=== PATIENT | male | born 1950 | race Caucasian/White ===

== ENCOUNTER 2017-03-07 16:54 | Emergency (ER) | payer OTHER, BC ==
[~2017-03-07] VITALS: Ht 170.2 cm; Wt 69.6 kg
[2017-03-07 16:59] VITALS: Ht 170.2 cm; Wt 69.6 kg
[2017-03-07 20:08] LABS: URINE BLOOD (Dip) POC 1+ (NEGATIVE)
[2017-03-07] MEDS ORDERED: ONDANSETRON 4 MG INJ IV STA (20:20)
[2017-03-07] MEDS ORDERED: metroNIDAZOLE 500 MG/NS (PMX) 100 ML IVPB STA (20:20)
[2017-03-07] MEDS ORDERED: SODIUM CHLORIDE 0.9% 1L BAG IV* STA (20:20)
[2017-03-07] MEDS ORDERED: morphine 4 MG/ML VIAL IV STA (20:20)
[2017-03-07] MEDS ORDERED: ACETAMINOPHEN 325 MG TAB PO STA (20:20)
[2017-03-07] MEDS ORDERED: PIPER-TAZO 3.375 GM IV (PMX) 50 ML IVPB STA (20:20)
--- NOTE | 2017-03-07 20:25 | ERD ---
ER Documentation Chief Complaint Chief Complaint abdominal pain x 3 days, sent by pmd HPI 66-year-old male with a history of GERD, diverticulosis and prediabetes presents to the ED complaining of a 3 day history of moderate to severe, sharp and crampy, nonradiating left lower quadrant pain with nausea and multiple episodes of nonbloody, non-mucoid diarrhea. No vomiting. No ill contacts, recent travel or spoiled food exposure. Denies chest pain, palpitations or shortness of breath. Subjective fevers and chills. Patient seen by his PMD earlier this afternoon and referred to the ED for further evaluation. ROS All systems reviewed and are negative except as per history of present illness. Medications Home Meds Reported Medications Meloxicam* (Mobic*) 15 Mg Tablet, 15 MG PO DAILY, #30 TAB 03/07/17 Pantoprazole* (Pantoprazole*) 40 Mg Tablet.dr, 40 MG PO AC BREAKFAST, TAB 03/07/17 Benazepril Hcl* (Benazepril Hcl*) 5 Mg Tablet, 5 MG PO DAILY, #30 TAB 03/07/17 Allergies Allergies: Coded Allergies: No Known Allergy (Unverified , 03/07/17) PMhx/Soc Reviewed in chart. As per HPI. History of Surgery: Yes (back surgery) Anesthesia Reaction: No Hx Cardiac Disorders: Yes (htn, high cholesterol) Hx Miscellaneous Medical Probl: Yes (pre-diabetic) Hx Alcohol Use: Yes (occasionally) Hx Substance Use: No Hx Tobacco Use: Yes Smoking Status: Current every day smoker FmHx No cancer, stroke or diabetes Physical Exam Vitals Vital Signs Date Time Temp Pulse Resp B/P Pulse Ox O2 Delivery O2 Flow Rate FiO2 03/07/17 20:14 101.9 89 20 126/64 98 Room Air 03/07/17 16:59 99.4 84 18 140/64 96 Physical Exam Const: Alert, moderate distress due to pain. Head: Atraumatic Eyes: Normal Conjunctiva ENT: Normal External Ears, Nose and Mouth. Neck: Full range of motion..~ No meningismus. Resp: Clear to auscultation bilaterally Cardio: Regular rate and rhythm, no murmurs Abd: Soft, left lower quadrant tenderness. No rebound or guarding. Right upper quadrant or right lower quadrant tenderness. Skin: No petechiae or rashes Back: No midline or flank tenderness Ext: No cyanosis, or edema Neur: Awake and alert Psych: Normal Mood and Affect Result Diagram: 03/07/17202703/07/172027 Results 24 hrs Laboratory Tests Test 03/07/17 20:00 03/07/17 20:06 03/07/17 20:28 Urine Color YELLOW Urine Clarity CLEAR Urine pH 6.0 Urine Specific [place] 1.030 Urine Ketones 1+mg/dL Urine Nitrite POSITIVEmg/dL Urine Bilirubin NEGATIVEmg/dL Urine Urobilinogen 1+mg/dL Urine Leukocyte Esterase NEGATIVELeu/ul Urine Microscopic RBC 1/HPF Urine Microscopic WBC 2/HPF Urine Mucus MANY/HPF Urine Hemoglobin 1+mg/dL Urine Glucose 1+mg/dL Urine Total Protein 1+mg/dl Bedside Urine pH (LAB) 5.5 Bedside Urine Protein (LAB) Trace Bedside Urine Glucose (UA) Negative Bedside Urine Ketones (LAB) 1+ Bedside Urine Blood 1+ Bedside Urine Nitrite (LAB) Negative Bedside Urine Leukocyte Esterase (L Negative White Blood Count 10.110^3/ul Red Blood Count 4.5410^6/ul Hemoglobin 14.4g/dl Hematocrit 40.6% Mean Corpuscular Volume 89.4fl Mean Corpuscular Hemoglobin 31.7pg Mean Corpuscular Hemoglobin Concent 35.5g/dl Red Cell Distribution Width 12.3% Platelet Count 27797^3/UL Mean Platelet Volume 9.4fl Neutrophils % 83.3% Lymphocytes % 9.4% Monocytes % 6.6% Eosinophils % 0.0% Basophils % 0.3% Nucleated Red Blood Cells % 0.0/100WBC Neutrophils # 8.410^3/ul Lymphocytes # 0.910^3/ul Monocytes # 0.710^3/ul Eosinophils # 0.010^3/ul Basophils # 0.010^3/ul Nucleated Red Blood Cells # 0.010^3/ul Prothrombin Time 13.6Sec Prothrombin Time Ratio 1.1 INR International Normalized Ratio 1.03 Activated Partial Thromboplast Time 31.5Sec Sodium Level 140mmol/L Potassium Level 3.7mmol/L Chloride Level 104mmol/L Carbon Dioxide Level 27mmol/L Anion Gap 13 Blood Urea Nitrogen 14mg/dl Creatinine 0.93mg/dl Glucose Level 129mg/dl Lactic Acid Level 1.4mmol/L Calcium Level 9.0mg/dl Total Bilirubin 1.0mg/dl Direct Bilirubin 0.00mg/dl Indirect Bilirubin 1.0mg/dl Aspartate Amino Transf (AST/SGOT) 22IU/L Alanine Aminotransferase (ALT/SGPT) 38IU/L Alkaline Phosphatase 78IU/L Troponin I < 0.012ng/ml Total Protein 8.0g/dl Albumin 4.1g/dl Globulin 3.90g/dl Albumin/Globulin Ratio 1.05 Current Medications Medications (Trade) Dose Ordered Sig/Jules Route PRN Reason Start Time Stop Time Status Last Admin Dose Admin Sodium Chloride (NS) 2,160 ml BOLUS OVER 2 HOURS STAT IV* 03/07/17 20:20 03/07/17 20:23 DC 03/07/17 20:39 Acetaminophen 650 mg 650 mg ONCE STAT PO 03/07/17 20:20 03/07/17 20:23 DC 03/07/17 20:37 Piperacillin Sod/ Tazobactam Sod 50 ml @ 100 mls/hr ONCE STAT IVPB 03/07/17 20:20 03/07/17 20:49 DC 03/07/17 20:38 Metronidazole (Flagyl 500 Mg (Pmx)) 100 ml @ 100 mls/hr ONCE STAT IVPB 03/07/17 20:20 03/07/17 21:19 DC 03/07/17 21:48 Morphine Sulfate (morphine) 4 mg ONCE STAT IV 03/07/17 20:20 03/07/17 20:23 DC 03/07/17 20:38 Ondansetron HCl (Zofran Inj) 4 mg ONCE STAT IV 03/07/17 20:20 03/07/17 20:23 DC 03/07/17 20:38 IV Flush 10 ml 10 ml STK-MED ONCE .ROUTE 03/07/17 21:01 03/07/17 21:02 DC 03/07/17 21:17 Sodium Chloride (NS) 100 ml @ ud STK-MED ONCE .ROUTE 03/07/17 21:01 03/07/17 21:02 DC 03/07/17 21:19 Iodixanol (Visipaque Locm) 100 ml STK-MED ONCE .ROUTE 03/07/17 21:01 03/07/17 21:02 DC 03/07/17 21:19 EKG: Time: 20:43. Sinus rhythm. Ventricular rate 87, normal AK and QRS intervals. No acute ST segment elevation or depression. No axis deviation or ectopy. EP Impression: Normal EKG IMAGING: PROCEDURE: CT abdomen and pelvis with contrast. CLINICAL INDICATION: Left lower quadrant pain TECHNIQUE: CT scan of the abdomen and pelvis without oral contrast was performed and is reconstructed at all 2.5 mm contiguous axial intervals from the dome of the diaphragm to the inferior pubic rami.. The patient was scanned with intravenous contrast. Sagittal and coronal reformatted images were obtained from the axial source images. The calculated radiation dose measures 449 mGy centimeters. The CTDI measures the 7.9 mGy. Individualized dose optimization technique was used for the performance of this exam. This included 1. Automated exposure control. 2. Adjustment of the mA and / or kV according to the patient's size. 3. Use of iterative reconstructed technique. COMPARISON: None. FINDINGS: The lung bases are clear of any infiltrate or nodule. No effusion is seen. The liver is of normal size, contour and attenuation with no mass or ductal dilatation. No gallstones are visualized. No splenic, adrenal or pancreatic abnormalities present. Kidneys enhance symmetrically and are of normal size and contour. No hydronephrosis, calculus or masses seen. Ureters are of normal course and caliber with no stone. No bladder mass or stone is present. Prostate and seminal vesicles are normal. There is no aneurysm. No adenopathy is present. No bowel mass or obstruction is present. The appendix is normal. There is diverticulosis. No phlegmon, ascites or pneumoperitoneum is visualized. There is L4-L5 degenerative disc narrowing. IMPRESSION: No evidence of urolithiasis, obstructive uropathy, diverticulitis or appendicitis. Diverticulosis. 2. L4-L5 degenerative disc narrowing. .Presley Remy MD, MD Date Time Electronically viewed and signed by .Presley Remy MD, on 03/07/2017 21: 31 .A/ Procedures/MDM DOCUMENTS REVIEWED: ED nurse, prior records. REEXAMINATION/REEVALUATION: Time:22:45. Doing well. Abdomen soft nontender. No nausea or vomiting. MEDICAL DECISION MAKIN-year-old male with a history of GERD, diverticulosis and prediabetes presents to the ED complaining of a 3 day history of abdominal pain and diarrhea. CT the abdomen pelvis performed to evaluate for an acute intra-abdominal process including but not limited to abdominal aortic aneurysm, obstructive uropathy, appendicitis, diverticulitis and colitis is unremarkable. Doubt mesenteric ischemia. Fever but no criteria for systemic inflammatory response or more sepsis. No evidence of pyelonephritis, urinary tract infection or prostatitis. Possible infectious diarrhea. Although the etiology of his symptoms do not been established pain resolved with intravenous hydration, analgesics and antiemetics. Stable for discharge of precautionary instructions and outpatient follow-up as counseled. Counseled patient and family regarding diagnosis, diagnostic results and plan for discharge. Clearly understands that the etiology of his symptoms are not definitively established and urgent outpatient follow-up in 24 hours is mandatory return to ED immediately if symptoms worsen. Departure Diagnosis: Primary Impression: Acute abdominal pain in left lower quadrant Additional Impressions: Fever Fever type: unspecified Qualified Code: R50.9 - Fever, unspecified fever cause Diarrhea Diarrhea type: unspecified type Qualified Code: R19.7 - Diarrhea, unspecified type Condition: Stable (Improved) DEBBY OROURKE MD Mar 07, 2017 20:25
--- NOTE | 2017-03-07 20:42 | RADRPT ---
PROCEDURE: Chest x-ray CLINICAL INDICATION: Shortness of breath TECHNIQUE: Chest single view COMPARISON: None FINDINGS: The heart is normal in size. The pulmonary vessels are normal in caliber. The lungs are clear. Th e costophrenic angles are sharp. The visualized bony thorax is unremarkable. IMPRESSION: No acute cardiopulmonary disease. RPTAT: HH .Jefferson Nielsen MD, Date Time Electronically viewed and signed by .Jefferson Nielsen MD, on 03/07/2017 20:41 .W/
[2017-03-07 20:52] LABS: BASOPHILS % 0.3 % (0.0-2.0); HEMATOCRIT 40.6 % (42.0-52.0); HEMOGLOBIN 14.4 g/dl (14.0-18.0); LYMPHOCYTES # 0.9 10^3/ul (0.8-2.9); LYMPHOCYTES % 9.4 % (15.0-51.0); MEAN CORPUSCULAR HEMOGLOBIN 31.7 pg (29.0-33.0); MEAN CORPUSCULAR HGB CONC 35.5 g/dl (32.0-37.0); MEAN CORPUSCULAR VOLUME 89.4 fl (82.0-101.0); MEAN PLATELET VOLUME 9.4 fl (7.4-10.4); MONOCYTE # 0.7 10^3/ul (0.3-0.9); MONOCYTES % 6.6 % (0.0-11.0); NEUTROPHIL # 8.4 10^3/ul (1.6-7.5); NEUTROPHILS % 83.3 % (39.0-77.0); PLATELET COUNT 182 10^3/UL (140-415); RED BLOOD COUNT 4.54 10^6/ul (4.70-6.10); RED CELL DISTRIBUTION WIDTH 12.3 % (11.5-14.5); WHITE BLOOD COUNT 10.1 10^3/ul (4.8-10.8)
[2017-03-07 20:59] LABS: ADD UMIC YES; UR ASCORBIC ACID NEGATIVE (NEGATIVE); UR BILIRUBIN (Dip) NEGATIVE (NEGATIVE); UR BLOOD (Dip) 1+ mg/dL (NEGATIVE); UR CLARITY CLEAR (CLEAR); UR COLOR YELLOW (YELLOW); UR GLUCOSE (Dip) 1+ mg/dL (NEGATIVE); UR KETONES (Dip) 1+ mg/dL (NEGATIVE); UR LEUKOCYTE ESTERASE (Dip) NEGATIVE Leu/ul (NEGATIVE); UR MUCUS MANY /HPF (NONE SEEN); UR NITRITE (Dip) POSITIVE (NEGATIVE); UR RBC 1 /HPF (0-5); UR TOTAL PROTEIN (Dip) 1+ mg/dl (NEGATIVE); UR UROBILINOGEN (Dip) 1+ mg/dL (NEGATIVE)
[2017-03-07] MEDS ORDERED: IODIXANOL LOCM 100 ML BTL ONE (21:01)
[2017-03-07] MEDS ORDERED: SOD CHLORIDE 0.9% 100 ML ONE (21:01)
[2017-03-07 21:10] LABS: INR 1.03; PROTIME 13.6 Sec (11.9-14.9); PT RATIO 1.1
[2017-03-07 21:11] LABS: ALANINE AMINOTRANSFERASE 38 IU/L (13-69); ALBUMIN 4.1 g/dl (3.3-4.9); ALBUMIN/GLOBULIN RATIO 1.05; ALKALINE PHOSPHATASE 78 IU/L (42-121); ANION GAP 13 (8-16); ASPARTATE AMINO TRANSFERASE 22 IU/L (15-46); BLOOD UREA NITROGEN 14 mg/dl (7-20); CARBON DIOXIDE 27 mmol/L (21-31); CHLORIDE 104 mmol/L (97-110); CREATININE 0.93 mg/dl (0.61-1.24); GLUCOSE 129 mg/dl (70-220); PARTIAL THROMBOPLASTIN TIME 31.5 Sec (25.0-35.0); POTASSIUM 3.7 mmol/L (3.5-5.1); SODIUM 140 mmol/L (135-144)
[2017-03-07 21:26] LABS: TROPONIN-I < 0.012 ng/ml (0.00-0.12)
--- NOTE | 2017-03-07 21:31 | RADRPT ---
PROCEDURE: CT abdomen and pelvis with contrast. CLINICAL INDICATION: Left lower quadrant pain TECHNIQUE: CT scan of the abdomen and pelvis without oral contrast was performed and is reconstruc guilherme at all 2.5 mm contiguous axial intervals from the dome of the diaphragm to the inferior pubic ra mi.. The patient was scanned with intravenous contrast. Sagittal and coronal reformatted images we re obtained from the axial source images. The calculated radiation dose measures 449 mGy centimeters . The CTDI measures the 7.9 mGy. Individualized dose optimization technique was used for the performance of this exam. This included 1. Automated exposure control. 2. Adjustment of the mA and / or kV according to the patient's size. 3. Use of iterative reconstructed technique. COMPARISON: None. FINDINGS: The lung bases are clear of any infiltrate or nodule. No effusion is seen. The liver is of normal size, contour and attenuation with no mass or ductal dilatation. No gallston es are visualized. No splenic, adrenal or pancreatic abnormalities present. Kidneys enhance symmetrically and are of normal size and contour. No hydronephrosis, calculus or m asses seen. Ureters are of normal course and caliber with no stone. No bladder mass or stone is pr esent. Prostate and seminal vesicles are normal. There is no aneurysm. No adenopathy is present. No bowel mass or obstruction is present. The appendix is normal. There is diverticulosis. No phle gmon, ascites or pneumoperitoneum is visualized. There is L4-L5 degenerative disc narrowing. IMPRESSION: No evidence of urolithiasis, obstructive uropathy, diverticulitis or appendicitis. Diverticulosis. 2 . L4-L5 degenerative disc narrowing. .Presley Remy MD, MD Date Time Electronically viewed and signed by .Presley Remy MD, MD on 03/07/2017 21:31 .A/
[2017-03-07] MEDS ORDERED: BENA5TAB2 PO (22:08)
[2017-03-07] MEDS ORDERED: PANT40TA4 PO (22:09)
[2017-03-07] MEDS ORDERED: MELO-210 PO (22:11)
[2017-03-07 23:18] VITALS: BP 108/58; PULSE 71; RESP 18; TEMP 98.4
[2017-03-07] MEDS ORDERED: ONDA4TAB8 PO (23:19)
[2017-03-07] MEDS ORDERED: CIPR500T4 PO (23:19)
[2017-03-07] MEDS ORDERED: TRAM50TA2 PO (23:19)
== END 2017-03-07 23:36 | disposition home or self-care (01) ==
LOC: E/R 16:54
DX: R10.32 Left lower quadrant pain (principal); R50.9 Fever, unspecified; R19.7 Diarrhea, unspecified; I10 Essential (primary) hypertension; F17.210 Nicotine dependence, cigarettes, uncomplicated
CPT/HCPCS: 36415; 71010; 74177; 80053; 81001; 81003; 83605; 84484; 85025; 85610; 85730; 87040; 87086; 93005; 96374; 96375; 99285; J2270; J2405; J2543; J7030; Q9967